=== PATIENT | male | born 1960 ===

== ENCOUNTER 2017-02-03 10:37 | Emergency (ER) | payer OTHER ==
[2017-02-03 10:42] VITALS: O2SAT 100
--- NOTE | 2017-02-03 11:22 | C.PDOC ---
History Of Present Illness 56 y/o male with PMH Rheumatoid Arthritis presents to ED with complaints of joint pain worse to knees and ankles. Patient states he has chronic pain for 15 years and has been cared for in [place], but is now living in . Patient has no PMD and reports he usually take ibuprofen for pain with no relief. Patient reports occasional swelling and denies fever, shortness of breath, chest pain, calf pain or any other complaints at this time. Time Seen by Provider: 02/03/17 11:07 Chief Complaint (Nursing): Lower Extremity Problem/Injury History Per: Patient History/Exam Limitations: no limitations Onset/Duration Of Symptoms: Days Current Symptoms Are (Timing): Still Present Past Medical History Reviewed: Historical Data, Nursing Documentation, Vital Signs Vital Signs: Last Vital Signs Temp 97.9 F 02/03/17 12:09 Pulse 81 02/03/17 12:09 Resp 14 02/03/17 12:09 BP 139/87 02/03/17 12:09 Pulse Ox 100 02/03/17 12:09 - Medical History PMH: Arthritis Surgical History: No Surg Hx Family History: States: No Known Family Hx - Social History Hx Tobacco Use: No Hx Alcohol Use: No Hx Substance Use: No Review Of Systems Constitutional: Negative for: Fever, Chills Cardiovascular: Negative for: Chest Pain Respiratory: Negative for: Shortness of Breath Musculoskeletal: Positive for: Leg Pain Skin: Negative for: Rash Neurological: Negative for: Weakness, Numbness Physical Exam - Physical Exam Appears: Well, Non-toxic, No Acute Distress Skin: Warm, Dry, No Diaphoretic, No Rash, No Ecchymosis Head: Atraumatic, Normacephalic Eye(s): bilateral: Normal Inspection, EOMI Oral Mucosa: Moist Neck: Normal ROM Chest: Symmetrical Cardiovascular: Rhythm Regular, No Murmur Respiratory: Normal Breath Sounds, No Rales, No Rhonchi, No Wheezing Back: Normal Inspection, No Vertebral Tenderness, No Paraspinal Tenderness Extremity: Tenderness (Mild to left anterior knee), Pedal Edema (Trace bilateral ), No Calf Tenderness, Capillary Refill (<2 seconds), Swelling (Mild to left knee) Pulses: Left Dorsalis Pedis: Normal, Right Dorsalis Pedis: Normal Neurological/Psych: Oriented x3, Normal Speech, Normal Motor, Normal Sensation Gait: Other (uses cane) ED Course And Treatment O2 Sat by Pulse Oximetry: 100 (RA) Pulse Ox Interpretation: Normal Medical Decision Making Medical Decision Making: Impression: Arthritic joint pain Plan: * Toradol Progress, Reassess and Dispo: Upon re-eval patient reports pain has mostly improved. He is ambulating with cane. Discharge patient with prescriptions and follow up with clinic Disposition Counseled Patient/Family Regarding: Need For Followup, Rx Given - Disposition Referrals: [facility] [Outside] [facility] [Outside] [facility] [Outside] Disposition: HOME/ ROUTINE Disposition Time: 12:03 Condition: STABLE Additional Instructions: Vaya a schmitt mdico o la clnica en 2-5 sommer sin falta, para mas evaluacin. [place] los medicamentos ilia indicado. Volver a la antwan de emergencia en cualquier momento si los sntomas persisten o empeoran. 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 - Scribe Statement The provider has reviewed the documentation as recorded by the Panchoibdylan Pablo All medical record entries made by the Panchoibdylna were at my direction and personally dictated by me. I have reviewed the chart and agree that the record accurately reflects my personal performance of the history, physical exam, medical decision making, and the department course for this patient. I have also personally directed, reviewed, and agree with the discharge instructions and disposition.
[2017-02-03 12:10] VITALS: BP 139/87; PULSE 81; RESP 14; TEMP 97.9
== END 2017-02-03 12:13 | disposition home or self-care (01) ==
LOC: C.ER 10:37
DX: M06.9 Rheumatoid arthritis, unspecified (principal)
CPT/HCPCS: 96372; 99284; J1885

== ENCOUNTER 2017-03-02 18:57 | Emergency (ER) | payer MEDICAID, OTHER ==
[2017-03-02 19:54] VITALS: BP 135/82; PULSE 98; RESP 16; TEMP 99.1; O2SAT 100
[2017-03-02] MEDS ORDERED: Oxycodone/Acetaminophen 5/325 mg Tab PO STA (20:37)
[2017-03-02] MEDS ORDERED: Oxycodone/Acetaminophen 5/325 mg Tab ONE (20:51)
--- NOTE | 2017-03-02 22:10 | C.PDOC ---
History Of Present Illness 56 y/o male with PMH Rheumatoid Arthritis presents to ED with complaints of right knee pain for 2 days. Patient states he has chronic pain for 15 years and has been cared for in [place], but is now living in the [place]. Patient has no PMD and has not followed up in the clinic. He states he was seen here before given meds, which he finished. Denies fever, shortness of breath, chest pain, calf pain or any other complaints at this time. Time Seen by Provider: 03/02/17 20:31 Chief Complaint (Nursing): Lower Extremity Problem/Injury History Per: Patient History/Exam Limitations: no limitations Onset/Duration Of Symptoms: Days (2) Current Symptoms Are (Timing): Still Present Past Medical History Reviewed: Historical Data, Nursing Documentation, Vital Signs Vital Signs: Last Vital Signs Temp 99.1 F 03/02/17 19:48 Pulse 98 H 03/02/17 19:48 Resp 16 03/02/17 19:48 BP 135/82 03/02/17 19:48 Pulse Ox 100 03/03/17 15:31 - Medical History PMH: Arthritis, HTN (a year ago) Family History: States: No Known Family Hx - Social History Hx Tobacco Use: No Hx Alcohol Use: No Hx Substance Use: No - Immunization History Hx Influenza Vaccination: No Hx Pneumococcal Vaccination: No Review Of Systems Except As Marked, All Systems Reviewed And Found Negative. Constitutional: Negative for: Fever Cardiovascular: Negative for: Chest Pain Respiratory: Negative for: Shortness of Breath Musculoskeletal: Positive for: Other ((+) Right knee pain.). Negative for: Leg Pain, Foot Pain Neurological: Negative for: Weakness, Numbness Physical Exam - Physical Exam Appears: Non-toxic, Other (uncomfortable with pain) Skin: Warm, Dry, No Rash Head: Atraumatic, Normacephalic Eye(s): bilateral: Normal Inspection, EOMI Oral Mucosa: Moist Neck: Normal, Normal ROM, Supple Chest: Symmetrical, No Tenderness Cardiovascular: Rhythm Regular, No Murmur Respiratory: Normal Breath Sounds, No Rales, No Rhonchi, No Stridor, No Wheezing Extremity: Normal ROM, No Calf Tenderness, No Deformity Pulses: Left Dorsalis Pedis: Normal, Right Dorsalis Pedis: Normal Neurological/Psych: Oriented x3, Normal Speech, Normal Motor Gait: Steady (with a cane.) Additional Physical Exam Comments: Extremity Right: swelling to anterior and suprapatellar area, tenderness to anterior knee, no erythema, no ecchymosis, ROM: painful flexion of the knee, no tactile warmth ED Course And Treatment O2 Sat by Pulse Oximetry: 100 - Other Rad X-Ray - Right Knee X-Ray: Viewed By Me, Read By Radiologist Interpretation: PROCEDURE: Right Knee Radiographs. HISTORY: knee pain for 3 days. COMPARISON: None. FINDINGS: BONES: No fracture. . Medial knee joint line and tibial spine spurs. JOINTS: Tricompartmental joint space narrowing ; tricompartmental -mild moderate osteoarthrosis. JOINT EFFUSION: Suprapatellar large masslike effusion. OTHER FINDINGS: Quadriceps insertional enthesophyte . Bipartite patella. IMPRESSION: Arthrosis. Bipartite patella. Masslike suprapatellar effusion. . Consider MR right knee. Medical Decision Making Medical Decision Making: Impression: Arthritic right knee pain Plan: * X-Ray - Right Knee * Percocet PO * Toradol IM Progress, Reassess and Dispo: Upon re-eval, patient reports pain has mostly improved. He is ambulating with cane. Discharge patient with prescriptions and follow up with clinic Of note: family member was angry waiting and left without signing discharge papers and Rx. Disposition Counseled Patient/Family Regarding: Diagnosis, Need For Followup, Rx Given - Disposition Referrals: [facility] [Outside] Disposition: HOME/ ROUTINE Disposition Time: 21:57 Condition: STABLE Additional Instructions: Por favor, siga en la clnica para chris evaluacin ms [place] los medicamentos segn lo prescrito Regrese al servicio de urgencias en cualquier momento si los sntomas persisten o empeoran. 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 - Scribe Statement The provider has reviewed the documentation as recorded by the Scribe Maddie Monae All medical record entries made by the Scribe were at my direction and personally dictated by me. I have reviewed the chart and agree that the record accurately reflects my personal performance of the history, physical exam, medical decision making, and the department course for this patient. I have also personally directed, reviewed, and agree with the discharge instructions and disposition.
--- NOTE | 2017-03-03 09:08 | RAD ---
PROCEDURE: Right Knee Radiographs. HISTORY: knee pain for 3 days COMPARISON: None. FINDINGS: BONES: No fracture. . Medial knee joint line and tibial spine spurs. JOINTS: Tricompartmental joint space narrowing ; tricompartmental -mild moderate osteoarthrosis JOINT EFFUSION: Suprapatellar large masslike effusion OTHER FINDINGS: Quadriceps insertional enthesophyte . Bipartite patella IMPRESSION: Arthrosis. Bipartite patella Masslike suprapatellar effusion. . Consider MR right knee.
== END 2017-03-02 22:15 | disposition home or self-care (01) ==
LOC: C.ER 18:57
DX: M25.561 Pain in right knee (principal)
CPT/HCPCS: 73562; 96372; 99284; J1885